=== PATIENT | male | born 1925 | race Caucasian/White ===

== ENCOUNTER 2017-02-16 08:05 | Inpatient (IN) | payer OTHER ==
--- NOTE | ~2017-02-16 | IDS ---
Interim Discharge Summary [facility] [address] [place]. [address] NAME: PHUONG CASH : [birth year] STATUS : ADM IN PAT#: [id number] AGE: 89 ADM/REG DATE : 02/16/17 MR#: [id number] REPORT SERV DATE: 02/19/17 DICTATED BY: AUDELIA TATE DATE: 02/19/17 REPORT STATUS : Draft TRANSCRIBED BY: MODL DATE: 02/19/17 ADMISSION DATE: 02/16/2017 DISCHARGE DATE: 02/19/2017 PROBLEM LIST: 1. Second degree and high-grade AV block, status post pacemaker. 2. Coronary artery disease. The patient is going to PCI tomorrow for LAD lesion. 3. Severe aortic stenosis. The patient refused open-heart surgery but he is considering transarterial aortic valve replacement evaluation and the patient will have outpatient evaluation after this admission. 4. Heart failure with valvular heart disease, present on admission which is resolved after treatment of initial IV diuretics. CONSULTANTS: 1. Dr. Narayan. 2. Dr. Murray. 3. Dr. Tejada. 4. Dr. Ricardo La. HISTORY OF PRESENT ILLNESS: This is an 89-year-old male patient, who initially went to the hospital in [facility] with short of breath. Please see dictated H and P. HOSPITAL COURSE: The patient was admitted to the hospital at [facility] with heart failure with valvular heart disease, aortic stenosis, and was found to have [id number] PA. Please see dictated discharge summary done by Dr. Rey. The patient was seen by Dr. Narayan and then transferred to [facility] to get a cardiac catheterization and further evaluation and he came to get the cardiac cath, it showed occluded LAD lesion and severe aortic stenosis. The patient has been evaluated by a cardiothoracic surgeon team here in [facility]. The patient refused open-heart surgery and open heart valve replacement, but he is considering transcatheter aortic valve replacement. At the same time, he was found to have high-degree AV block. So, the patient was also evaluated from electrophysiology standpoint. After he decided he is not going to do any open-heart surgery, plan was made to have pacemaker insertion first and having recovery during the weekend, and try to have a PCI for coronary artery disease and an outpatient transcatheter aortic valve replacement evaluation as an outpatient. The patient has been stable and tolerating all this treatment and waiting for the PCI done tomorrow and may discharge home after the cardiac catheterization, and outpatient valve replacement evaluation will be needed. EKL/MODL Audelia Tate M.D. Interim Discharge Summary [address] [place]. [address] NAME: PHUONG CASH : [birth year] STATUS : ADM IN PAT#: [id number] AGE: 89 ADM/REG DATE : 02/16/17 MR#: [id number] REPORT SERV DATE: 02/19/17 DICTATED BY: AUDELIA TATE DATE: 02/19/17 REPORT STATUS : Draft TRANSCRIBED BY: RAMANDEEP DATE: 02/19/17 / [id number] CC: Hi Penn M.D.
--- NOTE | ~2017-02-16 | CN ---
Consultation Report [facility] [address] [place]. [address] NAME: PHUONG CASH : [birth year] STATUS : REG REF PAT#: [id number] AGE: 89 ADM/REG DATE : 02/16/17 MR#: [id number] REPORT SERV DATE: 02/16/17 DICTATED BY: MP MURRAY DATE: 02/16/17 REPORT STATUS : Draft TRANSCRIBED BY: MODL DATE: 02/16/17 ELECTROPHYSIOLOGY CONSULTATION DATE OF CONSULTATION: REFERRING PROVIDERS: Dr. Chuck Hernández and Dr. Phuong Narayan. INDICATIONS: Second-degree AV block and weak spells. HISTORY OF PRESENT ILLNESS: Phuong Cash is an 89-year-old man who was admitted to [facility]. He was found to have elevated troponin. Cardiology was consulted. He has a background of severe aortic stenosis and previously declined to have intervention performed. He is now reconsidered his options. He has had several months of progressive shortness of breath. He has had some weak spells without richa syncope. No richa anginal symptoms. No clear orthopnea or PND. Echocardiogram demonstrates severe aortic stenosis, normal ejection fraction. ECG demonstrates sinus rhythm with 2:1 AV block. Another ECG that demonstrates atrial flutter with a slow ventricular response. PAST MEDICAL HISTORY: Severe aortic stenosis, history of knee surgery. HOME MEDICATIONS: Vitamin C, aspirin, Alphagan, Flovent, hydrocodone, Xalatan, multivitamin. ALLERGIES: CODEINE CAUSES HALLUCINATION. REVIEW OF SYSTEMS: As per the HPI. Otherwise, all review of systems negative. SOCIAL HISTORY: No present smoking. FAMILY HISTORY: Notable for heart disease in his father at an older age. PHYSICAL EXAMINATION: VITAL SIGNS: Blood pressure 148/82, pulse is 74, respiratory rate is 18. GENERAL: Appears stated age, no distress. EYES: Sclerae anicteric, no arcus senilis. MOUTH: Oral mucosa moist, lips acyanotic. NECK: Jugular venous pressure normal, no carotid bruits. LUNGS: Clear to auscultation bilaterally, normal inspiratory effort. CARDIAC: Irregular rhythm with a 3/6 systolic ejection murmur. ABDOMEN: Soft, nondistended, nontender. EXTREMITIES: No edema. SKIN: Warm and dry. NEURO/PSYCH: Alert and oriented, nonfocal, mood appropriate. Consultation Report [facility] [address] [place]. [address] NAME: PHUONG CASH : [birth year] STATUS : REG REF PAT#: [id number] AGE: 89 ADM/REG DATE : 02/16/17 MR#: [id number] REPORT SERV DATE: 02/16/17 DICTATED BY: MP MURRAY DATE: 02/16/17 REPORT STATUS : Draft TRANSCRIBED BY: MODL DATE: 02/16/17 LABORATORY AND DIAGNOSTIC STUDIES: Sodium 144, potassium 4.2, creatinine 1.15. Hemoglobin 12.6, white count 7.7, platelets 120. Troponin 3.8. IMPRESSION: 1. Second-degree AV block. 2. Severe aortic stenosis. 3. Elevated troponin. 4. Paroxysmal atrial fibrillation noted on ECG. RECOMMENDATIONS: Awaiting catheterization, if no PCI, anticipate pacemaker implant. I have discussed this with the patient and family addressing rationale, logistics, and risks. Risks include, but not limited to bleeding, infection, vascular complications, myocardial infarction, stroke, failure to place lead, lead dislodgement, pneumothorax. I went over the patient's aortic stenosis, he would be agreeable for a TAVR but would prefer to avoid an open surgery if possible. Otherwise at some point, consideration could be given to anticoagulation if the patient if the patient is observed in atrial fibrillation. All questions answered. LUCA/RAMANDEEP Mp Murray M.D. / [id number] CC: Hi Penn M.D.
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
--- NOTE | ~2017-02-16 | DS ---
Discharge Summary [facility] [address] [place]. [address] NAME: PHUONG CASH : [birth year] STATUS : DIS IN PAT#: [id number] AGE: 89 ADM/REG DATE : 02/16/17 MR#: [id number] REPORT SERV DATE: 02/22/17 DICTATED BY: DATE: REPORT STATUS : Draft TRANSCRIBED BY: MODL DATE: 02/21/17 ADMISSION DATE: 02/16/2017 DISCHARGE DATE: 02/21/2017 [facility] ATTENDING: Audelia Tate M.D. CONSULTANTS: Included Dr. Narayan of the [facility] and Dr. Murray of the [facility]. Dr. Misha La of Cardiothoracic Surgery. DISCHARGE DIAGNOSES: 1. Non-ST elevation myocardial infarction - status post drug-eluting stent x3 to the LAD. 2. Severe aortic stenosis - for outpatient valve clinic followup. 3. Second degree AV block - status post pacemaker placement on 02/16/2017. 4. Congestive heart failure with preserved ejection fraction - due to severe aortic stenosis. Acutely decompensated at admission, with pulmonary edema. Compensated at discharge. 5. Acute hypoxemic respiratory failure due to volume overload - resolved. 6. History of asbestosis and prior right lower lobe lobectomy. 7. Chronic obstructive pulmonary disease. 8. Rheumatoid arthritis. 9. History of benign prostatic hypertrophy. 10.History of Clostridium difficile colitis. IMAGIN. 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 Superimposed chronic small pleural effusion is not excluded. 2. Echocardiogram on 02/15/2017, normal left ventricular systolic function with ejection fraction 55-60%. Dilated left atrium. Grossly normal right ventricular chamber size and systolic function. Severe aortic stenosis with low gradient. 3. Cardiac catheterization on 02/16/2017, severe LAD stenosis crossing the 1st diagonal, severe ostial 1st diagonal stenosis. Occluded and weakly collateralized RCA. Aortic stenosis with valve area of 0.76 cm2 with mean gradient of 28 mm Hg. 4. Portable chest x-ray on 02/16/2017, post pacemaker shows satisfactory postprocedural chest. 5. Portable chest x-ray on 02/17/2017, right pleural fluid and minimal basilar atelectasis, but no acute abnormality. 6. Carotid Dopplers on 02/17/2017, show grade 1 bilateral carotid artery stenosis. 7. Cardiac catheterization on 02/20/2017, successful PCI of the LAD with 3 overlapping stents to the mid to distal LAD. Balloon angioplasty of the 1st diagonal vessel. Branch was jailed by the stent, however, YAZMIN-3 grade flow. PERTINENT LABS: Included discharge creatinine value of 0.8, normal electrolytes. Total cholesterol 67 with HDL 29, LDL 27, triglycerides 59. Troponin values ranging from 1.14 at Discharge Summary [place] [id number] [place]. [address] NAME: PHUONG CASH : [birth year] STATUS : DIS IN [facility]#: [id number] AGE: 89 ADM/REG DATE : 02/16/17 MR#: [id number] REPORT SERV DATE: 02/22/17 DICTATED BY: DATE: REPORT STATUS : Draft TRANSCRIBED BY: MODL DATE: 02/21/17 discharge to 6.33 at admission. BNP 1640. White blood cell count was normal throughout the admission, discharge hemoglobin 12.2 with platelets of 136. BRIEF HISTORY: For full details, please see the previously dictated history of present illness by Dr. Kade Hess. The patient is an 89-year-old white male, who presented with complaints of progressive shortness of breath, orthopnea. He was found to have an elevated troponin consistent with [id number] [place], and chest x-ray and labs consistent with acute pulmonary edema. The patient has known history of aortic stenosis, followed by Cardiology. Also known history of coronary artery disease, followed by Cardiology. Initially, the patient declined any invasive workup for these conditions, but when seen on 02/16/[address] Hernández, there was a change in the plan, and the patient was sent to the [facility] for left and right heart catheterization. HOSPITAL COURSE: For full details, please also reference interim discharge summary by Audelia Tate for dates of service, 02/16/2017 through 02/19/2017. The patient underwent coronary catheterization on 02/16/2017 showing occluded LAD lesion with severe aortic stenosis. The patient was evaluated by Cardiothoracic Surgery Team, but refused consideration of open heart surgery or open heart valve replacement. At the same time, he was found to have a high-degree AV block. He was evaluated by electrophysiology and pacemaker was placed on 02/16/2017. Postprocedure, he did well and underwent repeat coronary catheterization on 02/20/2017 for correction of the LAD lesion. He had a successful drug-eluting stent placement x3 and balloon angioplasty of one of the diagonals, with sikh of YAZMIN-3 flow. He had no post cath complications and is being discharged home with multiple cardiology followups. DISCHARGE DISPOSITION: To home in the care of supportive family with no specific activity restrictions aside from post catheterization orders as provided by Cardiology. He should adhere to a cardiac diet, but has no specific fluid restriction. His followup appointments will be with the Valve Clinic on 03/08 at 8 a.m., the Pacer Clinic on 03/09 at 4 p.m., and with Dr. Narayan in 2-3 weeks on 04/05 at 10:30 a.m. The patient is also requested to contact his primary care provider, Dr. Dave Carmen to schedule followup appointment there within two-three weeks. DISCHARGE MEDICATIONS: 1. Vitamin C 500 mg p.o. at bedtime. 2. Aspirin 81 mg p.o. at bedtime. 3. Alphagan eyedrops one drop in each eye 3 times a day. 4. Lipitor 40 mg p.o. at bedtime. 5. Plavix 75 mg p.o. daily. 6. Lasix 20 mg p.o. daily. 7. Latanoprost one drop in each eye at bedtime. 8. Multivitamin one tablet p.o. q.a.m. Discharge Summary [address] [address] NAME: PHUONG CASH : [birth year] STATUS : DIS IN PAT#: [id number] AGE: 89 ADM/REG DATE : 02/16/17 MR#: [id number] REPORT SERV DATE: 02/22/17 DICTATED BY: DATE: REPORT STATUS : Draft TRANSCRIBED BY: RAMANDEEP DATE: 02/21/17 9. Lopressor 12.5 mg p.o. twice a day. 10.Hydrocodone/acetaminophen 5/325 mg half a tab p.o. three times a day as needed. 11.Flovent HFA one puff inhaled twice a day. 12.Ultram 50 mg p.o. q4-6 hours p.r.n. pain. Thirty five minutes was spent in completion of the discharge summary. DICTATED BY: Hi Romero/RAMANDEEP Parrish Ayala M.D. / [id number] CC: Hi Romero M.D. Robert Berglund, M.D. [facility]
[~2017-02-16 08:05] MED LIST: ADVIL PO; ALPHAGAN OPH; ASAB PO; ASMANEX 30110 MCG INH; ASMANEX INH; BREO ELLIPTA INH; C1 PO; C2 PO; FLORASTOR250 MG PO; FLOVENT220 INH; K500 PO; MULTIVITAMI1 PO; NORCO1 TA1 PO; PRILO PO; SPIRIVA INH; TRAVATAN OPH; VANCOCIN HCL125 MG PO/LIQ; VITAMIN C100 M1 PO; VITC500 PO; XALAT OPH
[2017-02-17 03:44] LABS: BASOPHILS 0.2 %; BASOPHILS ABSOLUTE 0.01 10/3/uL (0.0-0.16); EOSINOPHILS 1.2 %; EOSINOPHILS ABSOLUTE 0.07 10/3/uL (0.0-0.53); HEMATOCRIT 36.5 % (40.0-51.0); HEMOGLOBIN 11.7 g/dL (13.6-17.8); IMMATURE GRANULOCYTES 0.3 %; IMMATURE GRANULOCYTES ABSOLUTE 0.02 10/3/uL (0.0-0.11); LYMPHOCYTES 15.5 %; LYMPHOCYTES ABSOLUTE 0.89 10/3/uL (0.67-4.30); MEAN CORPUS HGB CONC 32.1 g/dL (32.0-36.0); MEAN CORPUSCULAR HEMOGLOB 32.4 pg (26.0-34.0); MEAN CORPUSCULAR VOLUME 101.1 fL (80-100); MEAN PLATELET VOLUME 11.3 fL (9.2-13.0); MONOCYTES 7.1 %; MONOCYTES ABSOLUTE 0.41 10/3/uL (0.21-1.20); NEUTROPHILS 75.7 %; NEUTROPHILS ABSOLUTE 4.35 10/3/uL (2.02-8.40); PLATELET COUNT 135 10/3/uL (150-400); RBC DISTRIBUTION WIDTH 13.4 % (12.0-16.0); RED CELL COUNT 3.61 10/6/uL (4.7-6.1); WHITE BLOOD CELLS 5.8 10/3/uL (4.5-10.5)
[2017-02-17 03:47] LABS: MANUAL DIFF NO %
[2017-02-17 03:55] LABS: ALBUMIN 2.8 G/DL (3.5-5.0); BUN (BLOOD UREA NITROGEN) 21 MG/DL (6-23); CALCIUM, SERUM 8.2 MG/DL (8.5-10.4); CHLORIDE, SERUM 110 MMOL/L (96-112); CO2 (CARBON DIOXIDE) 27 MMOL/L (24-34); CREATININE 0.98 MG/DL (0.70-1.30); GFR AFRICAN AMERICAN 79 ML/MIN (>=60); GFR NON AFRICAN AMERICAN 68 ML/MIN (>=60); GLUCOSE, SERUM 83 MG/DL (60-99); PHOSPHORUS, SERUM 2.8 MG/DL (2.5-4.5); POTASSIUM, SERUM 3.9 MMOL/L (3.5-5.3); SODIUM, SERUM 143 MMOL/L (135-148)
[2017-02-20 06:36] LABS: INTERNATIONAL NORMAL RATI 1.3 UNITS (-); PROTIME (NOT ORD) 16.5 SEC (12.0-14.5)
[2017-02-20 06:37] LABS: BASOPHILS 0.1 %; BASOPHILS ABSOLUTE 0.01 10/3/uL (0.0-0.16); EOSINOPHILS 2.2 %; EOSINOPHILS ABSOLUTE 0.17 10/3/uL (0.0-0.53); HEMATOCRIT 35.5 % (40.0-51.0); HEMOGLOBIN 11.7 g/dL (13.6-17.8); IMMATURE GRANULOCYTES 0.1 %; IMMATURE GRANULOCYTES ABSOLUTE 0.01 10/3/uL (0.0-0.11); LYMPHOCYTES 17.7 %; LYMPHOCYTES ABSOLUTE 1.36 10/3/uL (0.67-4.30); MANUAL DIFF NO %; MEAN CORPUSCULAR HEMOGLOB 33.1 pg (26.0-34.0); MEAN CORPUSCULAR VOLUME 100.3 fL (80-100); MEAN PLATELET VOLUME 10.7 fL (9.2-13.0); MONOCYTES 6.8 %; MONOCYTES ABSOLUTE 0.52 10/3/uL (0.21-1.20); NEUTROPHILS 73.1 %; PLATELET COUNT 136 10/3/uL (150-400); RBC DISTRIBUTION WIDTH 13.2 % (12.0-16.0); RED CELL COUNT 3.54 10/6/uL (4.7-6.1); WHITE BLOOD CELLS 7.7 10/3/uL (4.5-10.5)
[2017-02-20 06:52] LABS: BUN (BLOOD UREA NITROGEN) 19 MG/DL (6-23); CALCIUM, SERUM 8.9 MG/DL (8.5-10.4); CHLORIDE, SERUM 106 MMOL/L (96-112); CHOL/HDL RATIO(NOT ORDER) 2.3 (0-5); CHOLESTEROL 67 MG/DL (< 200); CK-MB 1.1 NG/ML; CO2 (CARBON DIOXIDE) 28 MMOL/L (24-34); CPK 39 U/L (0-200); GFR AFRICAN AMERICAN 87 ML/MIN (>=60); GFR NON AFRICAN AMERICAN 75 ML/MIN (>=60); GLUCOSE, SERUM 90 MG/DL (60-99); HDL CHOLESTEROL 29 MG/DL (> 39); LDL CHOLESTEROL 27 MG/DL (< 130); NON-HDL CHOLESTEROL 38 MG/DL (< 160); SODIUM, SERUM 140 MMOL/L (135-148); TRIGLYCERIDE 59 MG/DL (< 150)
[2017-02-20 06:54] LABS: TROPONIN I 1.14 NG/ML (<0.05)
[2017-02-20 19:05] LABS: CPK 31 U/L (0-200)
[2017-02-20 19:12] LABS: CK-MB 1.1 NG/ML
[2017-02-21 05:22] LABS: HEMATOCRIT 36.9 % (40.0-51.0); HEMOGLOBIN 12.2 g/dL (13.6-17.8)
[2017-02-21 05:41] LABS: BUN (BLOOD UREA NITROGEN) 22 MG/DL (6-23); CALCIUM, SERUM 9.1 MG/DL (8.5-10.4); CHLORIDE, SERUM 106 MMOL/L (96-112); CO2 (CARBON DIOXIDE) 27 MMOL/L (24-34); CPK 42 U/L (0-200); GFR AFRICAN AMERICAN 92 ML/MIN (>=60); GFR NON AFRICAN AMERICAN 79 ML/MIN (>=60); POTASSIUM, SERUM 4.1 MMOL/L (3.5-5.3); SODIUM, SERUM 140 MMOL/L (135-148)
[2017-02-21 05:42] LABS: CK-MB 4.2 NG/ML; GLUCOSE, SERUM 115 MG/DL (60-99)
[2017-02-21] MEDS ORDERED: PLAVIX PO (09:28)
[2017-02-21] MEDS ORDERED: LOP25 PO (09:29)
[2017-02-21] MEDS ORDERED: L20 PO (09:29)
[2017-02-21] MEDS ORDERED: LIPITOR40 PO (09:30)
[2017-04-11] MEDS ORDERED: PEP20 PO (13:46)
[2017-04-17] MEDS ORDERED: PLAVIX PO (16:17)
[2017-04-17] MEDS ORDERED: HALF81 PO (16:17)
== END 2017-02-21 10:23 | disposition home or self-care (01) | DRG 242 ==
LOC: CORLMH 08:05 → SSU1 08:59 → 7NO 20:02 → SSU1 02-20 17:51
PROVIDERS: Hospitalist; Internal Medicine; Internal Medicine Cardiovascular Disease
PROC: 0JH606Z Insertion of Pacemaker, Dual Chamber into Chest Subcutaneous Tissue and Fascia, Open Approach (ICD-10-PCS; 2017-02-16)
PROC: 02H63JZ Insertion of Pacemaker Lead into Right Atrium, Percutaneous Approach (ICD-10-PCS; 2017-02-16)
PROC: 4A023N8 Measurement of Cardiac Sampling and Pressure, Bilateral, Percutaneous Approach (ICD-10-PCS; 2017-02-16)
PROC: 02HK3JZ Insertion of Pacemaker Lead into Right Ventricle, Percutaneous Approach (ICD-10-PCS; 2017-02-16)
PROC: B2111ZZ Fluoroscopy of Multiple Coronary Arteries using Low Osmolar Contrast (ICD-10-PCS; 2017-02-16)
PROC: B2161ZZ Fluoroscopy of Right and Left Heart using Low Osmolar Contrast (ICD-10-PCS; 2017-02-16)
PROC: 027036Z Dilation of Coronary Artery, One Artery with Three Drug-eluting Intraluminal Devices, Percutaneous Approach (ICD-10-PCS; principal; 2017-02-20)
DX: I21.4 Non-ST elevation (NSTEMI) myocardial infarction (principal); I50.23 Acute on chronic systolic (congestive) heart failure; J96.01 Acute respiratory failure with hypoxia; I44.1 Atrioventricular block, second degree; I25.82 Chronic total occlusion of coronary artery; D69.6 Thrombocytopenia, unspecified; T82.897A Other specified complication of cardiac prosthetic devices, implants and grafts, initial encounter; I35.0 Nonrheumatic aortic (valve) stenosis; I25.10 Atherosclerotic heart disease of native coronary artery without angina pectoris; J44.9 Chronic obstructive pulmonary disease, unspecified; M06.9 Rheumatoid arthritis, unspecified; N40.0 Benign prostatic hyperplasia without lower urinary tract symptoms; J61 Pneumoconiosis due to asbestos and other mineral fibers; I48.0 Paroxysmal atrial fibrillation; K21.9 Gastro-esophageal reflux disease without esophagitis; Z96.643 Presence of artificial hip joint, bilateral; I65.23 Occlusion and stenosis of bilateral carotid arteries; Z82.49 Family history of ischemic heart disease and other diseases of the circulatory system; Z88.5 Allergy status to narcotic agent; I49.5 Sick sinus syndrome; Z87.891 Personal history of nicotine dependence; Z66 Do not resuscitate
CPT/HCPCS: 33208; 71010; 71020; 80048; 80061; 80069; 82272; 82550; 82553; 82607; 82746; 82803; 83735; 83880; 84145; 84443; 84460; 84484; 85014; 85018; 85025; 85347; 85610; 85730; 93005; 93306; 93460; 93880; 94640; 96365; 96375; 99152; 99153; 99291; A9270-GY; C1725; C1751; C1769; C1785; C1874; C1892; C1894; C1898; C9600; J0583; J0690; J1940; J2250; J2930; J3010; Q9967